=== PATIENT | female | born 1960 | race Caucasian/White ===

== ENCOUNTER 2021-05-19 08:30 | Emergency (ER) | payer OTHER ==
[~2021-05-19] VITALS: Ht 154.9 cm; Wt 93.0 kg
[2021-05-19 08:41] VITALS: BP 127/75
--- NOTE | 2021-05-19 08:48 | NUR ---
PT AMBULATED TO BED 8
--- NOTE | 2021-05-19 08:53 | NUR ---
Mickey zelaya in ED - 05/19/21 at 0854 by [facility] AT BEDSIDE PERFORMING XRAY
--- NOTE | 2021-05-19 09:11 | NUR ---
Pt taken to CT via tanya
[2021-05-19] MEDS: KETOROLAC 30 MG/ML VIAL IM ONE (09:13)
[2021-05-19] MEDS: HYDROcodone/APAP 5/325 MG 1 TAB TAB PO ONE (09:14)
--- NOTE | 2021-05-19 09:19 | NUR ---
Pt back from CT, resting in bed
--- NOTE | 2021-05-19 10:19 | NUR ---
Blood taken and walked down to lab by Kal
[2021-05-19 10:39] LABS: BASOPHILS # (AUTO) 0.1 K/uL (0.00-0.22); BASOPHILS % (AUTO) 0.8 % (0.0-2.0); EOSINOPHILS # (AUTO) 0.1 K/uL (0-0.4); EOSINOPHILS % (AUTO) 0.8 % (0.0-4.0); HEMATOCRIT 38.9 % (36-48); LYMPHOCYTES # (AUTO) 1.6 K/uL (2.5-16.5); LYMPHOCYTES % (AUTO) 20.2 % (20.5-51.1); MEAN CORPUSCULAR HEMOGLOBIN 30 pg (27-31); MEAN CORPUSCULAR HGB CONC 34 g/dL (33-37); MEAN CORPUSCULAR VOLUME 89.7 fL (80-94); MONOCYTES # (AUTO) 0.7 K/uL (0.8-1.0); MONOCYTES % (AUTO) 8.3 % (1.7-9.3); NEUTROPHILS # (AUTO) 5.5 K/uL (1.8-7.7); NEUTROPHILS % (AUTO) 69.9 % (42.2-75.2); PLATELET COUNT (AUTO) 277 K/uL (140-450); RED BLOOD CELL COUNT(AUTO) 4.33 MIL/uL (4.20-5.40); RED CELL DISTRIBUTION WIDTH 13.8 % (11.6-13.7); WHITE BLOOD COUNT (AUTO) 7.9 K/uL (4.8-10.8)
[2021-05-19 10:49] LABS: ALBUMIN 3.9 g/dL (3.4-5.0); ANION GAP 11.4 (8-16); CARBON DIOXIDE 30.5 mmol/L (21-32); CREATININE 0.9 mg/dL (0.6-1.3); POTASSIUM 3.9 mmol/L (3.5-5.1); TOTAL BILIRUBIN 0.4 mg/dL (0.0-1.0)
--- NOTE | 2021-05-19 11:44 | NUR ---
CT contrast questionnaire filled out with consent.
--- NOTE | 2021-05-19 11:55 | NUR ---
Pt taken to Ct for procedure
--- NOTE | 2021-05-19 12:09 | NUR ---
Pt brought back from procedure, CT
--- NOTE | 2021-05-19 12:30 | NUR ---
Per Dr. Parra, pt ok to eat, offered food and encouraged fluids. All needs met. Pt resting comfortably in bed
[2021-05-19] MEDS: NACL 0.9% 1,000 ML IV ONE (12:34)
[2021-05-19 12:46] LABS: APPEARANCE,URINE CLEAR (CLEAR); BILIRUBIN,URINE NEGATIVE (NEGATIVE); BLOOD, URINE NEGATIVE (NEGATIVE); COLOR,URINE YELLOW (YELLOW); LEUKOCYTE ESTERASE ,URINE NEGATIVE (NEGATIVE); NITRITE, URINE NEGATIVE (NEGATIVE); UGLUCOSE 2+ (NEGATIVE)
[2021-05-19 13:05] VITALS: BP 124/75
[2021-05-19 13:16] LABS: RBC,URINE 0-5 /HPF (0-5); WBC,URINE 0-5 /HPF (0-5)
[2021-05-19] MEDS ORDERED: ACET-8386 PO (13:21)
[2021-05-19] MEDS ORDERED: NAPR-54 PO (13:21)
--- NOTE | 2021-05-19 13:56 | NUR ---
Patient discharged with v/s stable. Written and verbal after care instructions given and explained. Patient alert, oriented and verbalized understanding of instructions. Ambulatory with steady gait. All questions addressed prior to discharge. ID band removed. Patient advised to follow up with PMD. Rx of hydrocodone/acetaminophen/naproxen given. Patient educated on indication of medication including possible reaction and side effects. Opportunity to ask questions provided and answered. IV removed and WNL
== END 2021-05-19 13:40 | disposition home or self-care (01) ==
LOC: MED 08:30
DX: R10.9 Unspecified abdominal pain (principal); M54.6 Pain in thoracic spine; E11.9 Type 2 diabetes mellitus without complications; Z79.899 Other long term (current) drug therapy
CPT/HCPCS: 36415; 71260; 74176; 74177; 80053; 81001; 83690; 85025; 96360; 96372; 99285; J1885; J7030; Q9967; 96361